=== PATIENT | female | born 1985 | race Caucasian/White ===

== ENCOUNTER 2018-06-13 18:42 | Inpatient (IN) ==
[~2018-06-13 18:42] MED LIST: Famotidine 20 MG/2 ML VIAL IVP PRN; Metoclopramide 10 MG/2 ML VIAL IVP PRN; Naloxone 0.4 MG/ML INJ IVP PRN; Ondansetron 4 MG/2 ML VIAL IVP PRN
[2018-06-13] MEDS ORDERED: Ringers Solution, Lactated 1,000 ML ONE (18:49)
[2018-06-13] MEDS ORDERED: Oxytocin 20 units/ LR 1000 mL 20 UNIT/1,000 ML BAG IVC ONE (19:05)
[2018-06-13 19:11] LABS: Basophils % 0.1 %; Eosinophils % 0.1 %; Hematocrit 38.9 % (35.3-44.9); Hemoglobin 13.5 g/dL (11.5-15.4); Immature Granulocytes % 0.4 % (0-4); Lymphocytes # 1.9 K/mcL (0.6-4.6); Lymphocytes % 13.7 %; Mean Corpuscular HGB Conc 34.7 g/dL (31.6-35.5); Mean Corpuscular Hemoglobin 30.3 pg (28.0-33.3); Mean Corpuscular Volume 87.4 fL (83.0-100.0); Mean Platelet Volume 9.9 fL (9.4-12.4); Monocytes # 0.9 K/mcL (0.0-1.3); Monocytes % 6.4 %; Neutrophils # 11.1 K/mcL (1.6-8.9); Platelet Count 217 K/mcL (140-400); Red Blood Count 4.45 M/mcL (3.82-4.97); Segmented Neutrophils % 79.3 %
--- NOTE | 2018-06-13 19:29 | OB/GYN History & Physical ---
Date of Encounter: 06/13/18 Time of Encounter: 18:45 Assessment and Plan (1) 39 weeks gestation of Current visit: Yes Status: Acute Admit for delivery Hep B drawn Anticipate (2) tachycardia during labor Current visit: Yes Status: Acute NST reactive, FHR baseline 165 bpm. (3) Gestational hypertension Current visit: Yes Status: Acute Per CPM from [facility], BPs mildly elevated and Urine dip negative for protein, glucose, leukocytes & nitrates. BP on admission 140s/90s. PIH labs drawn. Qualifiers: Trimester: third trimester Qualified Code(s): O13.3 - Gestational [-induced] hypertension without significant proteinuria, third trimester History of Present Illness Chief complaint: Contractions, Tachycardia HPI: Ms. Ortega is a 33 year old female who presented at 39w1d. Pt presented from the [facility] with Lala Gamboa CPM. At the center was tachycardic with FHR in the 170s and the decision was made to transfer patient to the hospital. Pt denies VB or LOF. Reports contractions began around lunchtime today. Reports good FM. B positive GBS Negative Rubella Immune Hep B unknown Obstetrical History - Pregnancies : 6 Para: 4 Livin Medications and Allergies Allergy/AdvReac Type Severity Reaction Status Date / Time acetaminophen Allergy Difficulty Verified 06/13/18 19:38 [From Tylenol-Codeine] Breathing Review of System OB All systems PM: reviewed and no additional remarkable complaints except as stated Exam - Constitutional Constitutional: well developed, well nourished, average body habitus - HEENT HEENT: Normocephaly - Lungs Respiratory exam: CTAB - Cardiovascular Cardiovascular exam: RRR - Abdomen Abdomen: Present: bowel sounds normal, gravid, non tender - Extremities Extremities exam: normal capillary refill, pedal edema (1+ ) Deep Tendon Reflex Grade: 2+ Normal - Cervix Dilation: 5 Effacement: 80 Station: -1 Results Result Diagrams: 06/13/18 18:50 06/13/18 18:50 Abnormal lab results WBC 14.0 K/mcL (4.3-11.1) H 06/13/18 18:50 Neutrophils # 11.1 K/mcL (1.6-8.9) H 02/06/19 18:50 All other labs normal. - VTE Reasons for not Prescribing Prophylaxis: Treatment not Indicated - Low risk for VTE
[2018-06-13 19:31] LABS: Alanine Aminotransferase 29 Units/L (7-52); Aspartate Amino Transferase 35 Units/L (13-39); BUN/Creatinine Ratio 19 (6-26); Blood Urea Nitrogen 11 mg/dL (6-20); Lactate Dehydrogenase 205 Units/L (140-271); eGFR For Non-African Americans > 60 (> 60)
--- NOTE | 2018-06-13 19:54 | OB/GYN Procedure Note ---
Delivery - Delivery Date: 06/13/18 Provider: Sulma Guerrero Intrapartum events: other(please specify) ( Tachycardia ) Delivery induction: none Delivery monitor: external FHT, external uterine Anesthesia: none Quantitated Blood Loss: 50 - Infant (s) A Infant Delivery Date: 06/13/18 Infant Delivery Time: 18:59 Presentation: vertex Position: TYLER Route of delivery: Gender: Male Viability: Viable Weight Gram: 2.905 kg at 1 minute: 8 at 5 mins: 9 Shoulder Dystocia: not encountered Placenta: spontaneous Cord: nuchal cord, true knot, 3 umbilical vessels, nuchal reduced - Repair Episiotomy: none Laceration Description: None - Complications Delivery complications: meconium - Disposition Mom disposition: stable in LDR disposition: stable in LDR - Comments Comments: 33 year old female now 5 who presented at 39w1d from [facility] due to tachycardia. Precipitous of a viable male weighing 6#6oz with apgars of 8 at 1 minute and 9 at 5 minutes. SROM of thick meconium as was delivering. Nuchal x1 easily reduced, true knot noted in cord. placed on mom's chest and when cord pulsation ceased, cord was clamped and cut. Placenta delivered spontaneously and intact. Perineum intact. EBL 50ml. Infant [id number] with Mom attempting to breastfeed. Lala Gamboa, CPM and floor runner students from [place] present in room for delivery. Dad arrived just after .
[2018-06-13] MEDS ORDERED: Ibuprofen 600 MG TABLET PO PRN (20:59)
[2018-06-13] MEDS ORDERED: Measles/Mumps/Rubella Vacc 0.5 ML VIAL SQ PRN (20:59)
[2018-06-13] MEDS ORDERED: Oxytocin 20 units/ LR 1000 mL 20 UNIT/1,000 ML BAG IVC SCH (20:59)
[2018-06-14 08:01] VITALS: BP 131/84
--- NOTE | 2018-06-14 08:34 | Discharge Summary ---
Date of Encounter: 06/14/18 Time of Encounter: 08:13 - Discharge Diagnosis (1) Status post vaginal delivery Priority: Primary Status: Acute Comments: Patient meeting day one milestones. Pain well-controlled with prescribed medications. Voiding without difficulty, tolerating regular diet. No bowel movement yet. Patient declines RX for Motrin stating she has OTC Motrin at home. Anticipate discharge today (2) Breast feeding status of mother Priority: Secondary Status: Acute Comments: support as needed. This is patient's 5th baby and she is an experienced mother. - Discharge Medications Home Medications: Docusate [Colace] 100 mg PO BID capsule 06/14/18 [Rx] Ibuprofen [Motrin] 600 mg PO Q6HR PRN tablet 06/14/18 [Rx] Allergies/Adverse Reactions: Allergy/AdvReac Type Severity Reaction Status Date / Time acetaminophen Allergy Difficulty Verified 06/13/18 19:38 [From Tylenol-Codeine] Breathing Data Procedures and tests throughout hospitalization: Laboratory Tests 06/13/18 06/13/18 06/13/18 18:50 18:50 18:50 WBC 14.0 H RBC 4.45 Hgb 13.5 Hct 38.9 MCV 87.4 MCH 30.3 MCHC 34.7 RDW 14.0 Plt Count 217 MPV 9.9 Immature Gran % 0.4 Seg Neutrophils % 79.3 Lymphocytes % 13.7 Monocytes % 6.4 Eosinophils % 0.1 Basophils % 0.1 Neutrophils # 11.1 H Lymphocytes # 1.9 Monocytes # 0.9 Eosinophils # 0.0 Basophils # 0.0 BUN 11 Creatinine 0.58 L Est GFR ( Amer) > 60 Est GFR (Non-Af Amer) > 60 BUN/Creatinine Ratio 19 Uric Acid 5.0 AST 35 ALT 29 Lactate Dehydrogenase 205 Hep Bs Antigen Nonreactive Labs on day of discharge: Labs from last 24 hours 06/13/18 06/13/18 06/13/18 18:50 18:50 18:50 WBC 14.0 H RBC 4.45 Hgb 13.5 Hct 38.9 MCV 87.4 MCH 30.3 MCHC 34.7 RDW 14.0 Plt Count 217 MPV 9.9 Immature Gran % 0.4 Seg Neutrophils % 79.3 Lymphocytes % 13.7 Monocytes % 6.4 Eosinophils % 0.1 Basophils % 0.1 Neutrophils # 11.1 H Lymphocytes # 1.9 Monocytes # 0.9 Eosinophils # 0.0 Basophils # 0.0 BUN 11 Creatinine 0.58 L Est GFR ( Amer) > 60 Est GFR (Non-Af Amer) > 60 BUN/Creatinine Ratio 19 Uric Acid 5.0 AST 35 ALT 29 Lactate Dehydrogenase 205 Hep Bs Antigen Nonreactive Date of admission: 06/13/18 18:42 Primary care physician: Jimena Mishra MD Consults: 06/13/18 20:59 Consult to Developing Machine Operator [CONS] Routine Comment: Vaginal delivery, consult needed Consult to Customer Facilities Supervisor [CONS] Routine Reason for SW Consult: Tong, self pay Discharging clinician: Amy Price Anticipated date of discharge: 06/14/18 - Patient Status Disposition: Home, Self-Care Condition: Good Functional capacity at discharge: independent ambulation Overall status at discharge: patient is progressing back to baseline - Discharge Instructions Follow Up With: Jimena Mishra MD [Primary Care Provider] - - Diet and Activity Activity: resume usual activities as tolerated Diet: regular diet Hospital Course Reason for admission: active labor, other ( tachycardia. Sent from [facility]) Delivery: Episiotomy: none Laceration: none Other procedures: none complications: none Discharge diagnosis: IUP at term delivered baby: male Hospital course: Delivery Date: 06/13/18 Provider: Sulma Guerrero Intrapartum events: other(please specify) ( Tachycardia ) Delivery induction: none Delivery monitor: external FHT, external uterine Anesthesia: none Quantitated Blood Loss: 50 - Infant (s) A Infant Delivery Date: 06/13/18 Delivery Time: 18:59 Presentation: vertex Position: TYLER Route of delivery: Gender: Male Viability: Viable Weight Gram: 2.905 kg at 1 minute: 8 at 5 mins: 9 Shoulder Dystocia: not encountered Placenta: spontaneous Cord: nuchal cord, true knot, 3 umbilical vessels, nuchal reduced - Repair Episiotomy: none Laceration Description: None - Complications Delivery complications: meconium - Disposition Mom disposition: stable in LDR disposition: stable in LDR - Comments Comments: 33 year old female now 5 who presented at 39w1d from [facility] due to tachycardia. Precipitous of a viable male weighing 6#6oz with apgars of 8 at 1 minute and 9 at 5 minutes. SROM of thick meconium as infant was delivering. Nuchal x1 easily reduced, true knot noted in cord. Infant placed on mom's chest and when cord pulsation ceased, cord was clamped and cut. Placenta delivered spontaneously and intact. Perineum intact. EBL 50ml. Infant [id number] with Mom attempting to breastfeed. Lala Gamboa, TREVIN and old coin dealer students from [place] present in room for delivery. Dad arrived just after . Time Attestation: Total time spent providing and/or coordinating discharge services: Time Spent: Less than 30 minutes Exam - Constitutional Vitals: Temp Pulse Resp BP Pulse Ox 97.9 F 89 16 131/84 97 06/14/18 07:45 06/14/18 07:45 06/14/18 07:45 06/14/18 07:45 06/14/18 03:20 General appearance IM: A&O X 3, pleasant, no acute distress, answers questions appropriately - Respiratory Respiratory exam: Present: CTAB - Cardiovascular Cardiovascular exam IM: Present: RRR, +S1, +S2 - GI/Abdominal GI/Abdominal exam IM: normal bowel sounds, soft - Uterine Tone: Firm Uterus Position: At Umbilicus, Midline - Extremities Exam Extremities exam IM: Present: full ROM, normal capillary refill, normal inspecti on - Neurological Exam Neurological exam: alert, normal gait, oriented X3
[2018-06-14] MEDS ORDERED: Prenatal Vit/FA 1 EACH TABLET PO SCH (09:00)
== END 2018-06-14 11:38 | disposition home or self-care (01) | DRG 807 ==
LOC: 1NENULAB → 1NENUOBS 21:44
PROVIDERS: ADMIT Registered Nurse; ATTEND Registered Nurse